=== PATIENT | female | born 1945 ===

== ENCOUNTER 2021-02-28 23:48 | Inpatient (IN) ==
[2021-03-01] MEDS ORDERED: HYDROcodone/ACETAMIN 5/325 mg TAB PO ONE (00:32)
[2021-03-01] MEDS ORDERED: Ondansetron 4 mg VIAL 2 MG/ML 2 ml VIAL IV PRN (01:19)
[2021-03-01 02:26] LABS: Rapid COVID-19 Molecular Undetected (Undetected)
[2021-03-01 02:35] LABS: ABS Lymphocytes 1.2 10^3/ul (1.0-4.8); ABS Monocytes 0.6 10^3/ul (0-0.8); ABS Neutrophils 4.6 10^3/ul (1.5-7.7); Eosinophil % 0.5 %; Hematocrit 40 % (35-47); Hemoglobin 12.8 g/dL (12.0-16.0); Lymphocyte % 18.1 %; Mean Corpuscular HGB Conc 32 g/dL (31-36); Mean Corpuscular Hemoglobin 29 pg (27-31); Mean Corpuscular Volume 91 fL (80-97); Mean Platelet Volume 8.7 fL (7.4-10.4); Platelet Count 230 10^3/uL (150-450); Red Blood Count 4.36 10^6 /uL (3.70-4.87); Red Cell Distribution Width 16 % (10-15); White Blood Count 6.4 10^3/uL (3.5-10.8)
[2021-03-01 02:44] LABS: INR 1.18 (0.86-1.15)
[2021-03-01 03:08] LABS: Calcium 9.2 mg/dL (8.6-10.3); EGFR African American 76.8 (>60); EGFR Non-African American 63.5 (>60); Potassium 4.4 mmol/L (3.5-5.0)
[2021-03-01 06:42] LABS: ABS Eosinophils 0.1 10^3/ul (0-0.6); ABS Lymphocytes 1.2 10^3/ul (1.0-4.8); ABS Monocytes 0.7 10^3/ul (0-0.8); ABS Neutrophils 3.6 10^3/ul (1.5-7.7); Eosinophil % 0.9 %; Hematocrit 39 % (35-47); Hemoglobin 12.6 g/dL (12.0-16.0); Lymphocyte % 20.6 %; Mean Corpuscular HGB Conc 32 g/dL (31-36); Mean Corpuscular Hemoglobin 30 pg (27-31); Mean Corpuscular Volume 92 fL (80-97); Mean Platelet Volume 8.8 fL (7.4-10.4); Nucleated Red Blood Cells % 0.1; Platelet Count 186 10^3/uL (150-450); Red Blood Count 4.25 10^6 /uL (3.70-4.87); Red Cell Distribution Width 16 % (10-15); White Blood Count 5.6 10^3/uL (3.5-10.8)
[2021-03-01] MEDS ORDERED: Perflutren Lipid Microsphere 3 ML VIAL ONE (07:51)
[2021-03-01 09:14] LABS: Calcium 9.1 mg/dL (8.6-10.3); Potassium 4.8 mmol/L (3.5-5.0)
[2021-03-01 09:19] LABS: EGFR African American 67.7 (>60)
[2021-03-01] MEDS: CMCS:Brimonidine/Timolol 0.2%/0.5% OPTH(NF) SOL 5 ML RIGHT EYE SCH ×2 (10:20→20:54)
[2021-03-01] MEDS: prednisoLONE 1% OPHTH.SUSP 5 ML OPHTH.SUSP RIGHT EYE SCH (10:20)
[2021-03-01] MEDS ORDERED: Lactated Ringers 1000 ml BAG 1,000 ML IV ONE (15:33)
[2021-03-01] MEDS: HYDROcodone/ACETAMIN 5/325 mg TAB PO PRN ×2 (17:41→23:57)
[2021-03-02] MEDS: HYDROcodone/ACETAMIN 5/325 mg TAB PO PRN ×2 (05:45→12:27)
[2021-03-02 06:12] LABS: ABS Basophils 0.1 10^3/ul (0-0.2); ABS Eosinophils 0.1 10^3/ul (0-0.6); ABS Lymphocytes 1.3 10^3/ul (1.0-4.8); ABS Monocytes 0.5 10^3/ul (0-0.8); ABS Neutrophils 2.3 10^3/ul (1.5-7.7); Eosinophil % 2.2 %; Hematocrit 37 % (35-47); Hemoglobin 12.2 g/dL (12.0-16.0); Lymphocyte % 30.4 %; Mean Corpuscular HGB Conc 33 g/dL (31-36); Mean Corpuscular Hemoglobin 30 pg (27-31); Mean Corpuscular Volume 90 fL (80-97); Mean Platelet Volume 8.8 fL (7.4-10.4); Nucleated Red Blood Cells % 0.1; Platelet Count 203 10^3/uL (150-450); Red Cell Distribution Width 16 % (10-15); White Blood Count 4.2 10^3/uL (3.5-10.8)
[2021-03-02 06:18] LABS: Blood Urea Nitrogen 19 mg/dL (6-24); CO2 Carbon Dioxide 24 mmol/L (22-32); Calcium 8.9 mg/dL (8.6-10.3); Chloride 107 mmol/L (101-111); EGFR African American 82.2 (>60); Glucose 85 mg/dL (70-100); Sodium 136 mmol/L (135-145)
[2021-03-02 06:28] LABS: Anion Gap 5 mmol/L (2-11)
[2021-03-02] MEDS: CMCS:Brimonidine/Timolol 0.2%/0.5% OPTH(NF) SOL 5 ML RIGHT EYE SCH ×2 (07:59→20:32)
[2021-03-02] MEDS: prednisoLONE 1% OPHTH.SUSP 5 ML OPHTH.SUSP RIGHT EYE SCH (08:01)
[2021-03-02 09:10] LABS: Magnesium 1.7 mg/dL (1.9-2.7)
[2021-03-02 10:16] LABS: TSH Ultra Thyroid Stim Horm 4.87 mcIU/mL (0.34-5.60)
[2021-03-02 10:18] LABS: Free T4 0.92 ng/dL (0.61-1.12)
[2021-03-02] MEDS ORDERED: Magnesium Sulfate 2 gm BAG 2 GM/50 ML BAG IVPB ONE (10:45)
[2021-03-02] MEDS ORDERED: Cosyntropin 0.25 MG VIAL IV ONE (11:44)
[2021-03-02] MEDS ORDERED: Albumin Human 25% 25 GM/100 ML BTL IV ONE (14:00)
[2021-03-02] MEDS ORDERED: NS 0.9% 1000 ml BAG 1,000 ML IV ONE (14:12)
[2021-03-02 15:22] LABS: Calcium 8.7 mg/dL (8.6-10.3); EGFR African American 82.2 (>60); Potassium 4.8 mmol/L (3.5-5.0)
[2021-03-02] MEDS: Hydrocortisone INJ 100 MG/2ML 2 ML VIAL IV SCH ×2 (16:20→20:27)
[2021-03-03] MEDS: Hydrocortisone INJ 100 MG/2ML 2 ML VIAL IV SCH ×2 (02:47→08:28)
[2021-03-03 07:03] LABS: ABS Lymphocytes 0.5 10^3/ul (1.0-4.8); ABS Monocytes 0.1 10^3/ul (0-0.8); ABS Neutrophils 4.6 10^3/ul (1.5-7.7); Hematocrit 36 % (35-47); Hemoglobin 11.9 g/dL (12.0-16.0); Lymphocyte % 10.4 %; Mean Corpuscular HGB Conc 33 g/dL (31-36); Mean Corpuscular Hemoglobin 30 pg (27-31); Mean Corpuscular Volume 90 fL (80-97); Mean Platelet Volume 9.1 fL (7.4-10.4); Nucleated Red Blood Cells % 0.1; Platelet Count 201 10^3/uL (150-450); Red Blood Count 3.97 10^6 /uL (3.70-4.87); Red Cell Distribution Width 16 % (10-15); White Blood Count 5.3 10^3/uL (3.5-10.8)
[2021-03-03 07:15] LABS: Calcium 9.2 mg/dL (8.6-10.3); EGFR African American 60.5 (>60); Magnesium 2.3 mg/dL (1.9-2.7)
[2021-03-03 07:29] LABS: Potassium 5.3 mmol/L (3.5-5.0)
[2021-03-03 08:03] LABS: Follicle Stimulating Hormone 42.6 mIU/mL
[2021-03-03 08:04] LABS: Luteinizing Hormone 8.5 mIU/mL
[2021-03-03] MEDS: prednisoLONE 1% OPHTH.SUSP 5 ML OPHTH.SUSP RIGHT EYE SCH (08:27)
[2021-03-03] MEDS: CMCS:Brimonidine/Timolol 0.2%/0.5% OPTH(NF) SOL 5 ML RIGHT EYE SCH ×2 (08:27→23:33)
[2021-03-03] MEDS: Lidocaine PATCH 5% PATCH TRANSDERM SCH (10:52)
[2021-03-03] MEDS: Butalb/Acetamin/Caff TAB 325-50-40MG PO PRN (10:58)
[2021-03-03] MEDS: Lidocaine Patch REMOVE PATCH PATCH OFF SCH (22:23)
[2021-03-04 06:47] LABS: ABS Basophils 0.1 10^3/ul (0-0.2); ABS Lymphocytes 1.5 10^3/ul (1.0-4.8); ABS Monocytes 0.6 10^3/ul (0-0.8); ABS Neutrophils 5.2 10^3/ul (1.5-7.7); Eosinophil % 0.6 %; Hematocrit 36 % (35-47); Lymphocyte % 20.1 %; Mean Corpuscular HGB Conc 33 g/dL (31-36); Mean Corpuscular Hemoglobin 30 pg (27-31); Mean Corpuscular Volume 90 fL (80-97); Mean Platelet Volume 8.9 fL (7.4-10.4); Platelet Count 197 10^3/uL (150-450); Red Blood Count 4.05 10^6 /uL (3.70-4.87); Red Cell Distribution Width 16 % (10-15); White Blood Count 7.4 10^3/uL (3.5-10.8)
[2021-03-04 07:03] LABS: Calcium 9.6 mg/dL (8.6-10.3); EGFR African American 73.9 (>60); Potassium 4.5 mmol/L (3.5-5.0)
[2021-03-04] MEDS: Lidocaine PATCH 5% PATCH TRANSDERM SCH (09:14)
[2021-03-04] MEDS: CMCS:Brimonidine/Timolol 0.2%/0.5% OPTH(NF) SOL 5 ML RIGHT EYE SCH ×2 (09:15→21:37)
[2021-03-04] MEDS: prednisoLONE 1% OPHTH.SUSP 5 ML OPHTH.SUSP RIGHT EYE SCH (09:15)
[2021-03-04] MEDS: Butalb/Acetamin/Caff TAB 325-50-40MG PO PRN ×3 (09:32→23:45)
[2021-03-04] MEDS: HYDROcodone/ACETAMIN 5/325 mg TAB PO PRN (16:57)
[2021-03-04 18:19] LABS: Rapid COVID-19 Molecular Undetected (Undetected)
[2021-03-04] MEDS: Lidocaine Patch REMOVE PATCH PATCH OFF SCH (21:37)
[2021-03-05] MEDS: HYDROcodone/ACETAMIN 5/325 mg TAB PO PRN ×3 (01:02→15:57)
[2021-03-05] MEDS: Butalb/Acetamin/Caff TAB 325-50-40MG PO PRN ×2 (08:47→15:56)
[2021-03-05] MEDS: Lidocaine PATCH 5% PATCH TRANSDERM SCH (08:47)
[2021-03-05] MEDS: CMCS:Brimonidine/Timolol 0.2%/0.5% OPTH(NF) SOL 5 ML RIGHT EYE SCH (08:50)
[2021-03-05] MEDS: prednisoLONE 1% OPHTH.SUSP 5 ML OPHTH.SUSP RIGHT EYE SCH (08:51)
[2021-03-05 13:18] VITALS: BP 114/74
== END 2021-03-05 16:10 | DRG 645 ==
LOC: ED 23:48 → MEDTELE 23:48 → SUATTDRO 03-01 03:38 → MEDTELE 03-01 04:26
PROVIDERS: ADMIT Internal Medicine; ATTEND Internal Medicine